=== PATIENT | male | born 1955 | race Caucasian/White ===

== ENCOUNTER 2016-08-19 05:39 | Day surgery (SDC) | payer OTHER ==
[~2016-08-19] VITALS: Ht 180.3 cm; Wt 125.2 kg
[~2016-08-19 05:39] MED LIST: AMOXICILLIN 8751 TAB PO; ASPI325T6 PO; ASPIRIN E.C. 8181 MG PO; BENICAR HCT 251 TAB PO; COREG 25MG25 MG/TAB PO; MULTI VITAMINS1 TAB PO; NORCO 325 MG-7.1 TAB PO; ROXICODONE 55 MG/TAB PO; TYLENOL 500MG500 MG PO; ZOCOR 40MG40 MG PO
[2016-08-19] MEDS ORDERED: DIOVAN HCT 25 M1 TA1 PO (06:23)
[2016-08-19] MEDS ORDERED: MOBIC15 MG PO (06:24)
[2016-08-19 06:48] VITALS: BP 116/55; PULSE 71; TEMP 98.1
[2016-08-19 07:20] VITALS: BP 132/54; PULSE 67; TEMP 97.6
[2016-08-19 07:35] VITALS: BP 115/45; PULSE 64
[2016-08-19 07:50] VITALS: BP 121/67; PULSE 68
== END 2016-08-19 08:10 | disposition home or self-care (01) ==
LOC: SDCO 05:39
DX: M25.662 Stiffness of left knee, not elsewhere classified (principal); Z96.652 Presence of left artificial knee joint; Z79.82 Long term (current) use of aspirin; Z79.899 Other long term (current) drug therapy
CPT/HCPCS: J1885; J2405; J2704; J3010; J7120

== ENCOUNTER → 2018-08-04 | Outpatient (CLI) | payer OTHER ==
[~2018-08-04] MED LIST changes: +DIOVAN HCT 25 M1 TA1 PO; +MOBIC15 MG PO
== END ==
LOC: SUN.DIA 12:41
DX: E11.40 Type 2 diabetes mellitus with diabetic neuropathy, unspecified (principal); E78.5 Hyperlipidemia, unspecified; I10 Essential (primary) hypertension; E66.9 Obesity, unspecified
CPT/HCPCS: G0108

== ENCOUNTER → 2018-08-17 | Outpatient (CLI) | payer OTHER | LOC: SUN.DIA 10:17 | DX: E11.40 Type 2 diabetes mellitus with diabetic neuropathy, unspecified (principal); E78.5 Hyperlipidemia, unspecified; I10 Essential (primary) hypertension; E66.9 Obesity, unspecified | CPT/HCPCS: G0108 ==

== ENCOUNTER → 2018-09-28 | Outpatient (CLI) | payer OTHER | LOC: SUN.DIA 08-30 14:33 | DX: E11.40 Type 2 diabetes mellitus with diabetic neuropathy, unspecified (principal); E78.5 Hyperlipidemia, unspecified; I10 Essential (primary) hypertension; E66.9 Obesity, unspecified | CPT/HCPCS: G0108 ==

== ENCOUNTER → 2018-11-09 | Outpatient (CLI) | payer OTHER ==
[~2018-11-09] MED LIST changes: +ASPIRIN 81M81 MG/TA2 PO; +BRILINTA90 MG PO; +GLUCOPHAGE1000 MG PO; +LIPITOR 80MG80 MG PO
== END ==
LOC: DIA.ED 08:55 → SUN.DIA 15:34
DX: E11.40 Type 2 diabetes mellitus with diabetic neuropathy, unspecified (principal); E78.5 Hyperlipidemia, unspecified; I10 Essential (primary) hypertension; E66.9 Obesity, unspecified
CPT/HCPCS: G0108

== ENCOUNTER 2018-12-07 06:06 | Day surgery (SDC) | payer OTHER ==
[2018-12-07] VITALS (270 sets, daily range): BP systolic 117–140; BP diastolic 51–96; PULSE 53–62; TEMP 97.4–98.1; O2SAT 91–99
[~2018-12-07] VITALS: Ht 180.3 cm; Wt 109.3 kg
[~2018-12-07 06:06] MED LIST changes: -ASPIRIN 81M81 MG/TA2 PO; -BRILINTA90 MG PO; -GLUCOPHAGE1000 MG PO; -LIPITOR 80MG80 MG PO
[2018-12-07 06:49] LABS: HEMATOCRIT 38.2 % (42.0-52.0); MEAN CELL VOLUME 94 fl (80.0-100.0); MEAN CORPUSCULAR HEMOGLOBIN 32 pg (27.0-31.0); MEAN CORPUSCULAR HGB CONC 34 g/dl (33.0-37.0); MEAN PLATELET VOLUME 10.8 fl (7.4-10.4); PLATELET COUNT 167 K/mm3 (130-400); RED BLOOD COUNT 4.07 M/mm3 (4.20-5.60); REDCELL DISTRIBUTION WIDTH-CV 13.3 % (11.5-14.5)
[2018-12-07 06:55] LABS: INR 1.2 (0.8-3.0); PROTHROMBIN TIME 13.1 SECONDS (9.7-12.8)
[2018-12-07 07:01] LABS: CALCIUM 9.4 mg/dL (8.4-10.2); CREATININE, serum 0.86 (0.66-1.25); POTASSIUM 3.5 mmol/L (3.4-5.0)
[2018-12-07] MEDS ORDERED: ASPIRIN 81M81 MG/TA2 PO (08:28)
[2018-12-07] MEDS ORDERED: DIOVAN HCT 25 M1 TA1 PO (08:29)
--- NOTE | 2018-12-07 09:14 | NUR ---
Pt to procedure at this time.Report to Arnie Love.
--- NOTE | 2018-12-07 09:17 | NUR ---
SEE MERGE REPORT FOR MEDICATION ADMINISTRATION TIMES WELL INTRA/POST SEDATION ASSESSMENTS. POSITIVE BARBEAU TO RIGHT RADIAL ARTERY. NITRO PASTE APPLIED TO RIGHT RADIAL ARTERY PER ORDERS PRIOR TO PROCEDURE.
--- NOTE | 2018-12-07 11:29 | NUR ---
Pt returned from procedure.
[2018-12-07] MEDS ORDERED: GLUCOPHAGE1000 MG PO (15:12)
--- NOTE | 2018-12-07 15:54 | NUR ---
Pt to ICU,report to Arnie Nguyen.
--- NOTE | 2018-12-07 19:10 | NUR ---
Report given to [employer] DEJESUS and care transfered.
[2018-12-08] VITALS (271 sets, daily range): BP systolic 135–143; BP diastolic 63–87; PULSE 59–61; TEMP 97.8–98.1; O2SAT 93–99
[2018-12-08 04:49] LABS: BASO # 0.1 (0.0-0.2); BASO % 0.6 % (0.0-2.0); EOS # 0.2 (0.0-0.7); EOS % 1.6 % (0-4.0); GRAN # 7.5 (1.4-6.5); GRAN % 69.5 % (42.2-75.2); HEMATOCRIT 37.8 % (42.0-52.0); HEMOGLOBIN 13.2 g/dl (13.5-18.0); LYMPH # 2.2 (1.2-3.4); MEAN CELL VOLUME 93 fl (80.0-100.0); MEAN CORPUSCULAR HEMOGLOBIN 33 pg (27.0-31.0); MEAN CORPUSCULAR HGB CONC 35 g/dl (33.0-37.0); MEAN PLATELET VOLUME 10.8 fl (7.4-10.4); MONO # 0.9 (0.1-0.6); MONO % 7.9 % (1.7-9.3); PLATELET COUNT 136 K/mm3 (130-400); RED BLOOD COUNT 4.05 M/mm3 (4.20-5.60); REDCELL DISTRIBUTION WIDTH-CV 13.4 % (11.5-14.5)
[2018-12-08 04:53] LABS: CALCIUM 8.8 mg/dL (8.4-10.2); CREATININE, serum 0.7 (0.66-1.25); POTASSIUM 3.5 mmol/L (3.4-5.0)
--- NOTE | 2018-12-08 06:37 | NUR ---
CALLED DR. KONG PER SOO RN'S REQUES TO SEE IF WE COULD GET PT UP TO FLOOR, DR. KONG VERBALIZED HE'LL CALL THIS RN BACK. AWAITING FOR CALL.
--- NOTE | 2018-12-08 07:45 | NUR ---
Pt arrived to room 307 via with ICU staff. Pt able to transfer from the WC to the floor bed without difficulty. Oriented to room and call light system. Will complete assessment. Pt is sitting up in the bed and he denies further needs. Call light within reach, will continue to monitor.
--- NOTE | 2018-12-08 07:51 | NUR ---
pt transferred to room 307 via wheelchair escorted by this RN. all belongings with pt. report given to OLEG Malloy.
--- NOTE | 2018-12-08 08:45 | NUR ---
Assessment complete. Pt is AXO X3, denies having any pain at this time. Breathing is even and unlabored on room air. Tele on. R radial cath site is soft and covered with a bandaid. LA infusing, remains free of complications, and is CDI. Pt's is at the bedside; all questions answered. Pt is sitting up in the chair watching TV at this time and he denies further needs. Call light within reach, will continue to monitor.
--- NOTE | 2018-12-08 09:11 | NUR ---
VENKATESH met with the patient and patient's , Zuri, to discuss discharge plan. The patient lives in [place] with his . He reports independence with ADLs and does not use any DME. The patient's PCP is Dr. Tomas Chaudhari and [place] [facility] [place] no difficulties obtaining his meds. The patient does not have advanced directives, but he was interested in obtaining a form for DPOA-HC. VENKATESH provided. The patient plans to return home with his upon discharge. No additional needs at this time.
[2018-12-08] MEDS ORDERED: LIPITOR 80MG80 MG PO (10:34)
[2018-12-08] MEDS ORDERED: BRILINTA90 MG PO (10:34)
--- NOTE | 2018-12-08 11:15 | NUR ---
Pt discharged at this time. LA IV discontinued with the catheter tip intact. Education provided and all questions were answered. Pt and his both verbalize understanding. Pt escourted out ambulatory with this nurse.
== END 2018-12-08 11:16 | disposition home or self-care (01) ==
LOC: COL.CAR 06:06 → ICU 16:16 → MEDICAL 12-08 07:37 → COL.CAR 12-08 11:16
PROVIDERS: Internal Medicine Cardiovascular Disease; Nurse Practitioner
DX: I25.110 Atherosclerotic heart disease of native coronary artery with unstable angina pectoris (principal); R94.39 Abnormal result of other cardiovascular function study; E11.9 Type 2 diabetes mellitus without complications; I10 Essential (primary) hypertension; E78.5 Hyperlipidemia, unspecified; Z82.49 Family history of ischemic heart disease and other diseases of the circulatory system; I34.0 Nonrheumatic mitral (valve) insufficiency
CPT/HCPCS: OP; C1725; C1769; C1874; C1887; C9600; J0583; J1644; J2250; J3010; Q9967

== ENCOUNTER 2019-03-12 15:32 | Outpatient (RCR) | payer OTHER ==
[~2019-03-12 15:32] MED LIST changes: +ASPIRIN 81M81 MG/TA2 PO; +BRILINTA90 MG PO; +GLUCOPHAGE1000 MG PO; +LIPITOR 80MG80 MG PO
== END 2019-03-20 | disposition home or self-care (01) ==
LOC: COL.CR
DX: Z48.812 Encounter for surgical aftercare following surgery on the circulatory system (principal); Z95.5 Presence of coronary angioplasty implant and graft

== ENCOUNTER → 2019-09-05 | Outpatient (CLI) | payer OTHER | LOC: DIA.ED 03-28 09:03 | DX: E11.40 Type 2 diabetes mellitus with diabetic neuropathy, unspecified (principal); Z79.84 Long term (current) use of oral hypoglycemic drugs; Z68.35 Body mass index [BMI] 35.0-35.9, adult; E78.5 Hyperlipidemia, unspecified; I10 Essential (primary) hypertension | CPT/HCPCS: G0108 ==

== ENCOUNTER 2022-08-20 16:25 | Inpatient (IN) | payer MEDICARE, OTHER ==
[~2022-08-20] VITALS: Ht 180.3 cm; Wt 111.6 kg
[2022-08-20 17:28] LABS: BASO # 0.1 K/mm3 (0.0-0.2); BASO % 0.7 % (0.0-2.0); EOS # 0.3 K/mm3 (0.0-0.7); EOS % 3.6 % (0.0-4.0); GRAN # 4.7 K/mm3 (1.4-6.5); GRAN % 56.6 % (42.2-75.2); HEMATOCRIT 40.1 % (42.0-52.0); HEMOGLOBIN 13.9 g/dl (13.5-18.0); LYMPH # 2.3 K/mm3 (1.2-3.4); LYMPH % 27.7 % (20.0-51.0); MEAN CELL VOLUME 94 fl (80.0-100.0); MEAN CORPUSCULAR HEMOGLOBIN 32 pg (27-31); MEAN CORPUSCULAR HGB CONC 35 g/dl (33.0-37.0); MEAN PLATELET VOLUME 11.1 fl (7.4-10.4); MONO # 0.9 K/mm3 (0.1-0.6); MONO % 11.2 % (1.7-9.3); PLATELET COUNT 193 K/mm3 (130-400); RED BLOOD COUNT 4.29 M/mm3 (4.20-5.60); REDCELL DISTRIBUTION WIDTH-CV 13.2 % (11.5-14.5)
[2022-08-20 17:35] LABS: INR 1.2 (0.8-3.0); PROTHROMBIN TIME 13.4 SECONDS (9.7-12.8)
[2022-08-20 17:47] LABS: ALBUMIN 3.4 gm/dL (3.4-4.8); BILIRUBIN,TOTAL 1.3 mg/dL (0.2-1.2); CALCIUM 9.4 mg/dL (8.4-10.2); CREATININE, serum 1.25 mg/dL (0.72-1.25); POTASSIUM 3.5 mmol/L (3.5-4.5); TOTAL PROTEIN 6.8 gm/dL (6.2-8.1)
[2022-08-20 17:52] LABS: TROPONIN-I 0.011 ng/mL (0.00-0.033)
[2022-08-20] MEDS ORDERED: OZEMPIC1 MG/0.71 SQ (18:56)
[2022-08-20 20:57] VITALS: BP 109/68; PULSE 60; TEMP 98.5
[2022-08-20 23:25] VITALS: BP 114/69; PULSE 70; TEMP 97.4
[2022-08-21] VITALS (8 sets, daily range): BP systolic 100–119; BP diastolic 53–67; PULSE 68–82; TEMP 97.5–98.1
[2022-08-21 06:13] LABS: BASO # 0.1 K/mm3 (0.0-0.2); BASO % 0.7 % (0.0-2.0); EOS # 0.3 K/mm3 (0.0-0.7); GRAN # 5.6 K/mm3 (1.4-6.5); HEMOGLOBIN 12.5 g/dl (13.5-18.0); LYMPH # 1.7 K/mm3 (1.2-3.4); LYMPH % 20.1 % (20.0-51.0); MEAN CELL VOLUME 93 fl (80.0-100.0); MEAN CORPUSCULAR HEMOGLOBIN 32 pg (27-31); MEAN CORPUSCULAR HGB CONC 35 g/dl (33.0-37.0); PLATELET COUNT 195 K/mm3 (130-400); RED BLOOD COUNT 3.87 M/mm3 (4.20-5.60); REDCELL DISTRIBUTION WIDTH-CV 13.2 % (11.5-14.5)
[2022-08-21 06:28] LABS: CALCIUM 8.9 mg/dL (8.4-10.2); CREATININE, serum 1.11 mg/dL (0.72-1.25); POTASSIUM 3.6 mmol/L (3.5-4.5)
[2022-08-21 06:49] LABS: TSH w REFLEX 1.781 uIU/mL (0.350-4.940)
--- NOTE | 2022-08-21 08:00 | NUR ---
Patient is awake in bed, alert and oriented x 4, VSS, no complains of chest pain. VSS. Assessment completed, no other needs at this time. Call light within reach.
[2022-08-22 04:11] VITALS: BP 123/70; PULSE 63; TEMP 98
--- NOTE | 2022-08-22 05:00 | NUR ---
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 PT HAD A PRETTY UNEVENTFUL NIGHT. PT DENIED GENERAL PAIN, CHEST PAIN, PALPITATIONS, SOB, N,V,D OR DIZZINESS. PT WALKED THE UNIT SEVERAL TIMES WITH . PT HOPES TO D/C HOME TODAY BEFORE THE GAME. CALL LIGHT WITHIN REACH.
[2022-08-22 06:39] LABS: BASO # 0.1 K/mm3 (0.0-0.2); BASO % 0.7 % (0.0-2.0); EOS # 0.3 K/mm3 (0.0-0.7); EOS % 3.2 % (0.0-4.0); GRAN # 4.5 K/mm3 (1.4-6.5); GRAN % 55.7 % (42.2-75.2); HEMOGLOBIN 12.2 g/dl (13.5-18.0); LYMPH # 2.3 K/mm3 (1.2-3.4); LYMPH % 27.7 % (20.0-51.0); MEAN CELL VOLUME 96 fl (80.0-100.0); MEAN CORPUSCULAR HEMOGLOBIN 32 pg (27-31); MEAN CORPUSCULAR HGB CONC 33 g/dl (33.0-37.0); MEAN PLATELET VOLUME 11.9 fl (7.4-10.4); MONO % 12.3 % (1.7-9.3); PLATELET COUNT 163 K/mm3 (130-400); RED BLOOD COUNT 3.83 M/mm3 (4.20-5.60); REDCELL DISTRIBUTION WIDTH-CV 13.1 % (11.5-14.5)
[2022-08-22 06:42] LABS: HEMATOCRIT 36.6 % (42.0-52.0)
[2022-08-22 06:55] LABS: ALBUMIN 3.2 gm/dL (3.4-4.8); CALCIUM 8.7 mg/dL (8.4-10.2); CREATININE, serum 1.04 mg/dL (0.72-1.25); PHOSPHOROUS 2.9 mg/dL (2.3-4.7); POTASSIUM 3.6 mmol/L (3.5-4.5)
[2022-08-22 08:00] VITALS: BP 128/73; PULSE 64; TEMP 98
--- NOTE | 2022-08-22 08:00 | NUR ---
Patient is watching TV, alert and oriented x 4, VSS, denies any chest pain, dizziness or SOB. Assessment completed. No other needs at this time. Call light within reach.
[2022-08-22] MEDS ORDERED: BETAPACE 80MG80 MG PO (11:25)
[2022-08-22] MEDS ORDERED: ELIQUIS 5MG PO (11:25)
[2022-08-22] MEDS ORDERED: DIOVAN 80MG80 MG PO (11:27)
--- NOTE | 2022-08-22 12:26 | NUR ---
Patient was provided with discharge information, all questions answered. Telemetry and IV access were discontinued. Pt and were accompanied to the entrance by MARIYA Mccabe.
== END 2022-08-22 12:20 | disposition home or self-care (01) | DRG 309 ==
LOC: COL.ER 16:25 → MEDICAL 18:23
PROVIDERS: Nurse Practitioner Family; Physician Assistant; ADMIT Internal Medicine
PROC: 5A09457 Assistance with Respiratory Ventilation, 24-96 Consecutive Hours, Continuous Positive Airway Pressure (ICD-10-PCS; principal; 2022-08-20)
DX: I48.0 Paroxysmal atrial fibrillation (principal); K91.2 Postsurgical malabsorption, not elsewhere classified; I10 Essential (primary) hypertension; I48.92 Unspecified atrial flutter; I25.10 Atherosclerotic heart disease of native coronary artery without angina pectoris; F10.90 Alcohol use, unspecified, uncomplicated; I95.9 Hypotension, unspecified; E11.9 Type 2 diabetes mellitus without complications; E78.5 Hyperlipidemia, unspecified; E87.6 Hypokalemia; E83.42 Hypomagnesemia; K75.9 Inflammatory liver disease, unspecified; M19.90 Unspecified osteoarthritis, unspecified site; I44.0 Atrioventricular block, first degree; G47.30 Sleep apnea, unspecified; Z95.5 Presence of coronary angioplasty implant and graft; Z85.828 Personal history of other malignant neoplasm of skin; Z86.16 Personal history of COVID-19; Z79.84 Long term (current) use of oral hypoglycemic drugs; Z79.82 Long term (current) use of aspirin; Z23 Encounter for immunization
CPT/HCPCS: J3475; J7030